=== PATIENT | female | born 1995 | race Two or more races ===

== ENCOUNTER 2024-10-18 13:41 | Emergency (ER) | payer OTHER, SELFPAY ==
[2024-10-18 13:42] VITALS: BMI 38.4
[2024-10-18 13:57] VITALS: BP 112/78; PULSE 90; RESP 16; TEMP 36.9; O2SAT 99
[2024-10-18] MEDS: DIPHENOXYLATE/ATROP SULF 1 TAB PO (14:18)
[2024-10-18] MEDS: ONDANSETRON ODT 4 MG TABRAP PO (14:18)
[2024-10-18 14:47] LABS: Basophils % (Auto) 0 % (0-2.5); Eosinophils # (Auto) 0.2 Thou/mm3 (0.0-0.5); Eosinophils % (Auto) 2 % (0-10); Hematocrit 45.8 % (36.0-46.0); Hemoglobin 15.2 g/dL (12.0-16.0); Immature Granulocytes % (Auto) 0 % (0-0); Immature Granulocytes Auto 0.02 Thou/mm3 (0.00-0.00); Lymphocytes # (Auto) 1.7 Thou/mm3 (1.0-4.8); Lymphocytes % (Auto) 20 % (10-50); Mean Corpuscular HGB Conc 33.2 g/dl (31.0-37.0); Mean Corpuscular Hemoglobin 27.1 pg (25.0-35.0); Mean Corpuscular Volume 82 fL (80-100); Monocytes # (Auto) 0.8 Thou/mm3 (0.0-0.8); Monocytes % (Auto) 10 % (0-12); Neutrophils # (Auto) 5.6 Thou/mm3 (1.8-7.7); Neutrophils % (Auto) 68 % (37-80); Nucleated Red Blood Cell % 0 /100 WBC (0); Platelet Count 351 Thou/mm3 (140-440); RDW Standard Deviation 42.8 fL (36.4-46.3); Red Blood Count 5.61 Miln/mm3 (4.00-5.20); White Blood Count 8.3 Thou/mm3 (3.6-11.0)
--- NOTE | 2024-10-18 14:47 | EDNOTE_ITS ---
<Statement entered by Yessi Wheeler MD - 10/21/24 14:05> As co-signing physician, I was present and available for consult prn. I concur with the plan and care as documented by the midlevel provider. Upper Respiratory Inf. RME/HPI General Chief Complaint: Flu Like Symptoms Stated Complaint: Nausea and vomitting for 5 days with diarrhea Time Seen by Provider: 10/18/24 13:59 Source: patient Arrival date/time: 10/18/24 13:41 This is a 29-year-old female presents to the emergency department with complaints of nausea vomiting for 5 days. Patient also states she began to have diarrhea 3 days ago. Patient reports she feels mild dizzy every time she gets up and feels palpitations. She does report she feels a little dehydrated requesting IV fluids. Denies fever, chills rigors no lethargy no neck or headache. Mode of arrival: ambulatory Limitations: no limitations Related Data Allergies Allergy/AdvReac Type Severity Reaction Status Date / Time No Known Allergies Allergy Verified 10/18/24 13:47 Review of Systems Review of Systems Systems Reviewed: All systems reviewed, normal except as documented Narrative Review of Systems: Gen: No fever, no chills, no weight loss EYES: No discharge, no visual changes, no pain HEENT: No ear pain, no congestion, no sore throat PULM: No shortness of breath, no cough, no congestion CV: No chest pain, no dyspnea on exertion, no palpitations GI: _+nausea, + vomiting, + diarrhea, no pain, no constipation : No frequency, no urgency,? no dysuria Musc/skel: No joint pain, no back pain Skin: No rash? ED Exam General Limitations: Present no limitations General appearance: Present alert and in no apparent distress Head Head exam: Present atraumatic Eye Eye exam: Present normal appearance, PERRL and EOMI ENT ENT exam: Present normal exam, normal oropharynx and mucous membranes moist Neck Neck exam: Present normal inspection, full ROM and trachea midline Chest Chest inspection: Present normal inspection and symmetric chest wall rise Respiratory Respiratory exam: Present normal lung sounds bilaterally Cardiovascular Cardiovascular exam: Present regular rate, normal rhythm and normal heart sounds Abdominal Exam Abdominal exam: Present soft and normal bowel sounds Extremities Exam Extremities exam: Present normal inspection and full ROM Back Exam Back exam: Present normal inspection and full ROM Neurological Exam Neurological exam: Present alert, oriented X3 and CN II-XII intact Psychiatric Psychiatric exam: Present normal affect and normal mood Skin Skin exam: Present warm, dry, intact and normal color Course Quality Measures none Orders Category Date Time Status Bedside Influenza A&B Antigen Test NOW Care 10/18/24 14:04 Completed Insert IV NOW Care 10/18/24 14:04 Completed CBC Stat Lab 10/18/24 14:28 Completed Comprehensive Metabolic Panel Stat Lab 10/18/24 14:28 Completed HCG Qualitative,Urine Stat Lab 10/18/24 17:00 Completed Lipase Stat Lab 10/18/24 14:28 Completed Urinalysis Stat Lab 10/18/24 17:00 Completed Diphenoxylate/Atrop Sulf [Lomotil] Med 10/18/24 14:04 Discontinued 1 tab PO X1 ONE Ondansetron Odt [Zofran Odt] Med 10/18/24 14:04 Discontinued 4 mg PO X1 ONE Sodium Chloride 0.9% 1000 ml [Ns] 1,000 ml Med 10/18/24 14:04 Discontinued IV 999 mls/hr Vital Signs Vital signs: Vital Signs Temperature 98.4 F 10/18/24 13:57 Pulse Rate 90 10/18/24 13:57 Respiratory Rate 16 10/18/24 13:57 Blood Pressure 112/78 10/18/24 13:57 Pulse Oximetry (%) 99 10/18/24 13:57 Oxygen Delivery Method Room Air 10/18/24 13:57 Upper Respiratory Infection MDM Narrative MDM Narrative:: 29-year-old female presents to the emergency department what appears to be a gastroenteritis. Patient's labs reassuring. Patient received IV fluids antiemetics improving her symptoms. patient reports feeling better as well and giving evidence of significant clinical improvement, I believe patient is now a candidate for discharge to home with close follow-up with PMD and strict instruction to return to emergency room if there is return persistence or worsening symptoms.? Patient verbalized understanding. Patient data External records reviewed:: [facility] previous records Clinical information provided by:: patient Social determinants that could affect healthcare access:: none Patient has the following chronic illnesses:: no How is presenting disease/condition affected by chronic disease/condition?: no chronic disease Evaluation data The following diagnostics were reviewed and interpreted by me:: lab results Lab and/or radiology exams considered but not ordered:: no Interpretation Summary: see avobe Medications / Prescriptions Medications or Prescriptions considered but not ordered:: no Medication administrations:: Medication Administration History Discontinued Medications Diphenoxylate HCl/Atropine (Diphenoxylate/Atrop Sulf 1 Tab) 1 tab PO X1 ONE Stop: 10/18/24 14:05 Last Admin: 10/18/24 14:18 Dose: 1 tab Documented By: LETHA Sodium Chloride (Ns) 1,000 mls @ 999 mls/hr IV .Q1H1M ONE Stop: 10/18/24 15:04 Last Infusion: 10/18/24 16:58 Dose: Infused Documented By: Admin: 10/18/24 16:23 Dose: 999 mls/hr Documented By: Ondansetron HCl (Ondansetron Odt 4 Mg Tabrap) 4 mg PO X1 ONE; Protocol Stop: 10/18/24 14:05 Last Admin: 10/18/24 14:18 Dose: 4 mg Documented By: LETHA All medications administered and effective Consultations Consultation(s) initiated? (list below): No Diagnosis Upper Respiratory Differential Diagnosis: upper respiratory infection, viral infection, bronchitis, influenza and other (Gastroenteritis) Most likely diagnosis given after review of the tests above:: Gastroenteritis Admission Indicated Admission indicated?: not indicated Admission Request Was there a request for admission?: No Disposition Plan Disposition Plan: Discharge Discharge Attestation Discharge Attestation: The patient and all family members were given an opportunity to ask questions and understood the discharge instructions. Discharge instructions specifically effects, indications for sooner follow up or return to the emergency department, and the expected course of current diagnosis. Patient condition: Stable Discharge Plan Plan Patient Disposition: HOME (Self Care) Patient condition on transfer: Stable Prescriptions/Referrals Referrals: No Primary/Family,Physician [Primary Care Provider] - In 1 week Problem List Clinical Impression: Gastroenteritis Patient/Caregiver Discharge Instructions Discharge Activity: activity as tolerated Education Materials: Bacterial Gastroenteritis Additional Instructions: -- Please use antibiotic as directed. Antiemetic was sent to the pharmacy. Good fluids to give are oral electrolyte rehydration solutions that you can buy at most supermarkets or pharmacies. Give your child cereals, bread, potatoes, lean meat, bananas, applesauce, or yogurt. Avoid giving your child fatty and sugary foods such as cakes, chocolates, ice cream, and take out foods. Print Language: Maltese Stand Alone Forms: Nickie Award Info., Work/School Release, Patient Portal Info Letter PA/KEY ACCOUNT COORDINATOR Supervising Physician PA/KEY ACCOUNT COORDINATOR Supervising Physician: Dr. Prado
[2024-10-18 15:06] LABS: Alanine Aminotransferase 99 U/L (10-49); Albumin, Serum 5.2 gm/dL (3.5-5.0); Albumin/Globulin Ratio 1.7 (1.2-2.2); Alkaline Phosphatase 125 U/L (46-116); Anion Gap 10 (7-16); Aspartate Amino Transferase 60 U/L (0-34); BUN/Creatinine Ratio 9 Ratio (12-20); Blood Urea Nitrogen 10 mg/dL (9-23); Calcium 9.7 mg/dL (8.3-10.6); Calcium (Corrected) 9.7 mg/dL (8.5-10.1); Carbon Dioxide 26.4 mMol/L (20.0-31.0); Chloride 102 mMol/L (98-107); Creatinine (Component) 1.1 mg/dL (0.6-1.3); Estimated Creatinine Clearance 95.5 mL/min (>60); Globulin 3.1 gm/dL (2.3-3.5); Glucose 109 mg/dL (74-106); Lipase 35 U/L (12-53); Osmolality,Calculated 275 (275-295); Potassium 3.6 mMol/L (3.4-5.1); Sodium 138 mMol/L (136-145); Total Protein 8.3 gm/dL (5.7-8.2); eGFR > 60 See Note
[2024-10-18] MEDS: SODIUM CHLORIDE 0.9% 1000 ML 1,000 ML 999 ML IV (16:23)
[2024-10-18 17:11] LABS: Collection Type, Urine Clean Catch
[2024-10-18 17:27] LABS: HCG Qualitative,Urine Negative
[2024-10-18 17:32] LABS: Bilirubin,Urine 1+ (Negative); Blood,Urine Negative (Negative); Clarity,Urine Turbid (Clear/Hazy); Color,Urine Yellow (Lt Yel-Yel); Glucose, Urine Negative (Negative); Ketones,Urine Trace (Negative); Leukocyte Esterase,Urine Positive (Negative); Nitrite,Urine Negative (Negative); Protein,Urine 1+ (Neg - Trace); RBC,Urine 9 /hpf (0-3); Specific Gravity,Urine 1.034 (1.001-1.035); Squamous Epithelial Cell,Urine 8 /hpf (0-5); Urobilinogen,Urine Negative mg/dL (0.0-1.0); WBC,Urine 20 /hpf (0-5)
== END 2024-10-18 18:20 | disposition home or self-care (01) ==
PROVIDERS: Nurse Practitioner Primary Care; Emergency Provider Emergency Medicine
DX: K52.9 Noninfective gastroenteritis and colitis, unspecified (principal)
CPT/HCPCS: 36415; 80053; 81001; 81025; 83690; 85025; 96360; 99284; J7030; Q0162; A9270